=== PATIENT | female | born 1970 | race Caucasian/White ===

== ENCOUNTER 2019-02-16 14:46 | Emergency (ER) | payer MEDICAID ==
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
[2019-02-16 15:44] LABS: BASO % 0.4 % (0-6); EOS % 2.7 % (0-6); GRAN % 64.4 % (47-80); HEMATOCRIT 39.2 % (35.0-47.0); HEMOGLOBIN 12.8 gm/dl (11.6-16.0); MEAN CELL VOLUME 90.7 fl (81-97); MEAN CORPUSCULAR HEMOGLOBIN 29.6 pg (27-33); MEAN CORPUSCULAR HGB CONC 32.7 g/dl (32-36); MEAN PLATELET VOLUME 9.4 fl (7.4-10.4); MONO % 8.5 % (0-9); PLATELET COUNT 313 K/uL (130-400); RED BLOOD COUNT 4.32 M/uL (3.80-5.40); RED CELL DISTRIBUTION WIDTH 12.5 % (11.5-14.5); WHITE BLOOD COUNT W/O DIFF 8.2 K/uL (4.2-12.2)
[2019-02-16 15:53] LABS: INR 0.9; PARTIAL THROMBOPLASTIN TIME 22.9 SECONDS (24.5-39.1); PROTHROMBIN TIME (PATIENT) 9.4 SECONDS (9.5-12.1)
[2019-02-16 15:57] LABS: BLOOD UREA NITROGEN 10 mg/dL (6-20); CREATININE 0.6 mg/dL (0.5-0.9); EST GLOMERULAR FILTRATION RATE > 60 mL/min
[2019-02-16 16:00] LABS: GLUCOSE,RANDOM 123 mg/dL (74-109)
[2019-02-16] MEDS ORDERED: ACETAMINOPHEN 325 MG TAB PO ONE (16:28)
== END 2019-02-16 17:07 | disposition home or self-care (01) ==
LOC: ER 14:46
DX: R51 Headache (principal); R00.0 Tachycardia, unspecified; Z86.73 Personal history of transient ischemic attack (TIA), and cerebral infarction without residual deficits; Z87.891 Personal history of nicotine dependence
CPT/HCPCS: 36416; 70450; 80048; 82948; 85025; 85610; 85730; 93005; 93010; 99284

== ENCOUNTER 2019-04-12 13:01 | Emergency (ER) | payer MEDICAID ==
[2019-04-12] MEDS ORDERED: 0.9 % SODIUM CHLORIDE 1,000 ML BAG IV ONE (13:09)
--- NOTE | 2019-04-12 13:20 | Emergency Department Record ---
History of Present Illness - General Chief complaint: Vomiting Stated complaint: LIGHTHEADED,DIZZINESS,NAUSEA,CANT KEEP ANYTHING DO Time Seen by Provider: 04/12/19 13:07 Source: Patient, Family Mode of Arrival: Ambulatory Limitations: No limitations - History of Present Illness Initial comments: 49 yo female presents with nausea, vomiting, and diarrhea that started suddenly on Thursday. The symptoms have continued since then. She states she has kept very little down since then. No blood in either. She has not been on recent antibiotics. Tmax was 99. She has had her GB removed. She is tender mostly over the left lower abdomen. No chest pain, no shortness of breath. She is significantly allergic to IV contrast. MD complaint: Abdominal pain, Nausea, Vomiting, Other -: Days(s) Description of Vomiting: Watery Description of Diarrhea: Water Associated Abdominal Pain: Yes Location: LLQ Radiation: LLQ Severity: Moderate Quality: Cramping Consistency: Constant Improves with: None Worsens with: Eating Context: Other Associated Symptoms: Loss of appetite, Nausea/vomiting, Weakness - Related Data Previous Rx's Medication Instructions Recorded Atorvastatin Calcium [Lipitor] 40 mg PO DAILY #30 tablet 02/16/19 Clopidogrel Bisulfate [Plavix] 75 mg PO DAILY #30 tab 02/16/19 Ondansetron [Zofran Odt] 4 mg PO Q8H #15 tab.rapdis 04/12/19 Allergies Allergy/AdvReac Type Severity Reaction Status Date / Time amoxicillin Allergy Unknown ANAPHYLAXIS Verified 04/12/19 14:02 aspirin Allergy Unknown WHEEZING Verified 04/12/19 14:02 Carbapenems Allergy Unknown HYPERSENSIT Verified 04/12/19 14:02 IVITY Cephalosporins Allergy Unknown HYPERSENSIT Verified 04/12/19 14:02 IVITY clavulanic acid Allergy Unknown HYPERSENSIT Verified 04/12/19 14:02 IVITY codeine Allergy Unknown WHEEZING Verified 04/12/19 14:02 Iodinated Contrast- Oral and Allergy Unknown SWELLING Verified 04/12/19 14:02 IV Dye (GENERAL) iodine Allergy Unknown SWELLING Verified 04/12/19 14:02 (GENERAL) NSAIDS (Non-Steroidal Allergy Unknown WHEEZING Verified 04/12/19 14:02 Anti-Inflamma Penicillins Allergy Unknown ANAPHYLAXIS Verified 04/12/19 14:02 Pyrazoles Allergy Unknown HYPERSENSIT Verified 04/12/19 14:02 IVITY Salicylates * Allergy Unknown HYPERSENSIT Verified 04/12/19 14:02 [Salicylates IVITY *RETIRED-04/01/16] gabapentin [From Neurontin] Allergy SWELLING Verified 04/12/19 14:02 (GENERAL) Review of Systems Constitutional: Reports: Fever (Tmax 99), Malaise, Weakness. Denies: Chills Eyes: Denies: Eye discharge, Eye pain, Photophobia, Vision change ENT: Denies: Congestion, Throat pain Respiratory: Denies: Cough, Dyspnea Cardiovascular: Denies: Chest pain, Dyspnea on exertion, Edema, Palpitations, Syncope Endocrine: Denies: Fatigue, Polydipsia, Polyuria Gastrointestinal: Reports: Abdominal pain, Diarrhea, Nausea, Vomiting. Denies: Constipation, Hematemesis, Hematochezia, Melena Genitourinary: Denies: Dysuria, Urgency Musculoskeletal: Denies: Arthralgia, Back pain, Myalgia Skin: Denies: Bruising, Change in color, Rash Neurological: Denies: Headache Psychiatric: Denies: Anxiety Hematological/Lymphatic: Denies: Easy bleeding, Easy bruising Past Medical History - SOCIAL HISTORY Smoking Status: Former smoker - RESPIRATORY Hx Respiratory Disorders: Yes Hx Bronchitis: Yes - CARDIOVASCULAR Hx Cardio Disorders: Yes Hx Chest Pain: Yes Hx Irregular Heartbeat: Yes Hx Palpitations: Yes (stress test negative) Comment:: abnormal holter monitor; murmur; unknown arrhythmia - NEURO Hx Neuro Disorders: Yes Hx of Migraines: Yes Comment:: 3 yrs. numbness, tingling - GI Hx GI Disorders: Yes Hx Reflux: Yes - Hx Genitourinary Disorders: Yes Hx Kidney Stones: Yes (Lithotripsy??) - ENDOCRINE Hx Endocrine Disorders: No - MUSCULOSKELETAL Hx Musculoskeletal Disorders: Yes Hx Arthritis: Yes - PSYCH Hx Psych Problems: Yes Hx Anxiety: Yes Hx Depression: Yes - HEMATOLOGY/ONCOLOGY Hx Hematology/Oncology Disorders: No Family Medical History Hx Cancer: Mother, Grandparents, Grandparents *Cancer Comment: paternal uncle- colon cancer, mother/grandmother lung cancer Hx Dementia: Father Hx Heart Disease: Mother, Grandparents Hx HTN: Father, Mother, Grandparents Hx Resp Disorders: Father Hx Seizures: Children Hx Stroke: Father Physical Exam - General General Appearance: Alert, Oriented x3, Cooperative, No acute distress Limitations: No limitations - Head Head exam: Atraumatic, Normal inspection - Eye Eye exam: Normal appearance, PERRL. negative: Conjunctival injection, Scleral icterus - ENT ENT exam: Normal exam, Mucous membranes moist Ear exam: Normal external inspection Nasal Exam: Normal inspection Mouth exam: Normal external inspection - Neck Neck exam: Normal inspection - Respiratory Respiratory exam: Normal lung sounds bilaterally. negative: Respiratory distress - GI/Abdominal GI/Abdominal exam: Soft, Normal bowel sounds, Tenderness (The abdomen is very soft but it is tender mostly in the LLQ. ). negative: Diminished bowel sounds, Guarding, Hernia, Rebound - Rectal Rectal exam: Deferred - exam: Deferred - Extremities Extremities exam: Normal inspection. negative: Pedal edema, Tenderness - Back Back exam: Denies: CVA tenderness (R), CVA tenderness (L) - Neurological Neurological exam: Alert, Oriented X3 - Psychiatric Psychiatric exam: Normal affect, Normal mood - Skin Skin exam: Dry, Intact, Normal color, Warm Course - Reevaluation(s) Reevaluation #1: Labs from the [facility] were reviewed. The CBC demonstrated a WBC of 13. Hgb is 14. The CMP was reviewed. No significant abnormalities. The UA demonstrated ketones. 04/12/19 13:13 04/12/19 14:09 Lipase is normal 04/12/19 14:[address] scan of the abdomen and pelvis is negative for any acute process 04/12/19 14:51 The patient is doing very well after the IVF. No nausea or significant pain. We discussed home care, reasons to return immediately and close follow up in the next week if any concerns or if the diarrhea has not resolved. Disposition Disposition: Discharge Clinical Impression: Vomiting and diarrhea Disposition: Home, Self-Care Condition: (1) Good Instructions: Acute Nausea and Vomiting (ED), Acute Diarrhea (ED) Additional Instructions: Call your doctor for the next available follow up appointment Review this ER visit and the tests performed with your family doctor Return to the ER for a recheck if worse, any new concerns or questions Take the prescriptions provided as directed Prescriptions: Ondansetron [Zofran Odt] 4 mg PO Q8H #15 tab.rapdis Forms: Patient Portal Access Time of Disposition: 14:53 Quality - Quality Measures Quality Measures: N/A - Blood Pressure Screening Does Patient Have Any of the Following: No Blood Pressure Classification: Pre-Hypertensive BP Reading Systolic Measurement: 135 Diastolic Measurement: 67 Screening for High Blood Pressure: < Pre-Hypertensive BP, F/U Documented > [G8950] Pre-Hypertensive Follow-up Interventions: Referral to alternative/primary care provider.
[2019-04-12] MEDS ORDERED: ONDANSETRON HCL IV 4 MG/2 ML VIAL IVP ONE (13:30)
[2019-04-12] MEDS ORDERED: ACETAMINOPHEN 1,000 MG/100 ML BTL IVPB ONE (13:31)
[2019-04-12] MEDS ORDERED: ONDANSETRON 4 MG ODT TABLET SL ONE (14:45)
--- NOTE | 2019-04-14 09:23 | CT SCAN REPORT ---
EXAM: CT OF THE ABDOMEN AND PELVIS WITHOUT CONTRAST HISTORY: VOMITING. TECHNIQUE: Sequential axial images were obtained from the diaphragms through the ischiorectal fossa without intravenous or oral contrast administration. FINDINGS: The visualized lung bases appear normal. The liver appears normal. The gallbladder is surgically removed. The pancreas and spleen appear normal. The adrenal glands and kidneys appear normal. No CT findings suggestive of obstructive uropathy. The small and large bowel appears normal. The appendix is surgically absent. The colon appears normal. The urinary bladder appears normal. The osseous structures are normal. IMPRESSION: NO ACUTE ABDOMINAL OR PELVIC DISEASE PROCESS. JOB NUMBER: [id number] MTDD
== END 2019-04-12 15:12 | disposition home or self-care (01) ==
LOC: ER 13:01
DX: R11.2 Nausea with vomiting, unspecified (principal); R19.7 Diarrhea, unspecified; R42 Dizziness and giddiness; R10.32 Left lower quadrant pain; R53.1 Weakness; Z87.891 Personal history of nicotine dependence
CPT/HCPCS: 99284 ×2; 96365; 96375; 83690; 80053; 85027; 74176; J2405; J7030